=== PATIENT | female | born 1995 | race Caucasian/White ===

== ENCOUNTER 2018-11-10 23:17 | Emergency (ER) | payer OTHER ==
[~2018-11-10] VITALS: Ht 172.7 cm; Wt 63.5 kg
[2018-11-11 00:10] VITALS: BP 116/60
--- NOTE | 2018-11-11 00:17 | NUR ---
PT TRIAGED, SENT BACK TO LOBBY AWAITING BED
--- NOTE | 2018-11-11 01:02 | NUR ---
PT STATED THAT SHE WANTED TO GET RESULTS OF URINE SAMPLE. DISCUSSED THAT RESULTS MUST BE INTERPRETED AND EVALUATED BY ER MD. PT STATED TO SPEAK WITH ER MD, MADE PT AWARE THAT PT NEEDS TO WAIT UNTIL BED IS AVAILABLE. PT STATED SHE WILL JUST LEAVE. PT ELOPED AT THIS TIME.
== END 2018-11-11 01:02 | disposition left against medical advice (07) ==
LOC: MED 23:17
DX: R10.32 Left lower quadrant pain (principal); F31.9 Bipolar disorder, unspecified
CPT/HCPCS: 81002; 81025; 99281

== ENCOUNTER 2018-12-25 22:47 | Emergency (ER) | payer OTHER ==
[~2018-12-25] VITALS: Ht 172.7 cm; Wt 74.8 kg
[2018-12-25 23:10] VITALS: BP 103/63
--- NOTE | 2018-12-25 23:12 | NUR ---
TO LOBBY A/W BED, AMBULATORY
--- NOTE | 2018-12-25 23:49 | NUR ---
PT AMBULATED TO BED 3 WITH STEADY GAIT.
--- NOTE | 2018-12-26 | NUR ---
PT CAME TO ER C/O OF RIGHT SUPRAPUBIC PAIN AND VAGINAL BLEEDING. PT IS 9 WEEKS . PAIN AT RIGHT SUPRAPUBIC AREA RADIATING TO BACK. PAIN LEVEL 6/10. PT HAS LIGHT VAGINAL BLEEDING WITH SMALL CLOTS. PT ALSO STATES SHE HAS BURNING UPON URINATION. NO VAGINAL DISCHARGE. PT HAS HX OF ECTOPIC IN MAY. SAFETY MEASURES IN PLACE. WAITING FOR ERMD TO EVALUATE PT.
--- NOTE | 2018-12-26 00:30 | NUR ---
PT IN BED RESTING WITH EYES CLOSED, EASILY ARROUSABLE. VSS. WILL CONTINUE TO MONITOR.
[2018-12-26 00:49] LABS: BASOPHILS % (AUTO) 0.4 % (0.0-2.0); EOSINOPHILS # (AUTO) 0.2 K/uL (0-0.4); EOSINOPHILS % (AUTO) 1.8 % (0.0-4.0); HEMATOCRIT 37.1 % (36-48); HEMOGLOBIN 12.2 g/dL (12.0-16.0); LYMPHOCYTES # (AUTO) 2.6 K/uL (2.5-16.5); LYMPHOCYTES % (AUTO) 29.7 % (20.5-51.1); MEAN CORPUSCULAR HEMOGLOBIN 28 pg (27-31); MEAN CORPUSCULAR HGB CONC 33 g/dL (33-37); MEAN CORPUSCULAR VOLUME 84.2 fL (80-94); MONOCYTES # (AUTO) 0.6 K/uL (0.8-1.0); MONOCYTES % (AUTO) 7.1 % (1.7-9.3); NEUTROPHILS # (AUTO) 5.4 K/uL (1.8-7.7); PLATELET COUNT (AUTO) 272 K/uL (140-450); RED CELL DISTRIBUTION WIDTH 15.4 % (11.6-13.7); WHITE BLOOD COUNT (AUTO) 8.8 K/uL (4.8-10.8)
[2018-12-26 00:51] LABS: APPEARANCE,URINE HAZY (CLEAR); BILIRUBIN,URINE NEGATIVE (NEGATIVE); BLOOD, URINE TRACE-I (NEGATIVE); COLOR,URINE YELLOW (YELLOW); LEUKOCYTE ESTERASE ,URINE NEGATIVE (NEGATIVE); NITRITE, URINE NEGATIVE (NEGATIVE); UGLUCOSE NEGATIVE (NEGATIVE)
[2018-12-26 01:03] LABS: ANION GAP 10.2 (8-16); CARBON DIOXIDE 28.2 mmol/L (21-32); CREATININE 0.6 mg/dL (0.6-1.3); POTASSIUM 4.4 mmol/L (3.5-5.1)
--- NOTE | 2018-12-26 01:04 | NUR ---
US AT BEDSIDE
[2018-12-26 01:10] LABS: RBC,URINE 0-5 /HPF (0-5); WBC,URINE 0-5 /HPF (0-5)
[2018-12-26 01:29] LABS: ALBUMIN 3.6 g/dL (3.4-5.0); TOTAL BILIRUBIN 0.2 mg/dL (0.0-1.0)
--- NOTE | 2018-12-26 02:00 | NUR ---
PT RESTING IN BED WITH EYES CLOSED, EASILY ARROUSABLE. VSS. WILL CONTINUE TO MONITOR.
--- NOTE | 2018-12-26 02:50 | NUR ---
PT SITTING UP IN BED AWAKE, TALKING TO FAMILY. WILL CONTINUE TO MONITOR.
--- NOTE | 2018-12-26 03:50 | NUR ---
ERMD AT BEDSIDE
[2018-12-26 03:55] VITALS: BP 100/71
--- NOTE | 2018-12-26 03:59 | NUR ---
Patient discharged BY DR. CARTWRIGHT with v/s stable. Written and verbal after care instructions given and explained. Patient verbalized understanding. Ambulatory with steady gait. All questions addressed prior to discharge. Advised to follow up with PMD.
== END 2018-12-26 03:59 | disposition home or self-care (01) ==
LOC: MED 22:47
DX: O03.9 Complete or unspecified spontaneous abortion without complication (principal); Z98.890 Other specified postprocedural states; Z88.8 Allergy status to other drugs, medicaments and biological substances
CPT/HCPCS: 36415; 76801; 80053; 81001; 84702; 85025; 86900; 86901; 87086; 99284; Q0092

== ENCOUNTER 2019-01-02 19:12 | Observation (INO) | payer OTHER ==
[~2019-01-02] VITALS: Ht 172.7 cm; Wt 74.8 kg
--- NOTE | 2019-01-02 19:14 | NUR ---
PT GABRIELLE WRIGHT. TAKEN TO BED 11
[2019-01-02 19:17] VITALS: BP 120/73
--- NOTE | 2019-01-02 19:17 | NUR ---
PT BIBA FROM HOME C/O VAGINAL BLEEDING AND LEFT LOWER QUADRANT ABDOMINAL PAIN 01/02. PT IS 9WKS , SEEN IN ER AUG 2 FOR THE SAME SIGNS AND SYMPTOMS BUT WORSENING PAIN AND MORE BLEEDING, PT STATED USING 8 PADS SATURATED WITH BLOOD TODAY WITH CLOTS. PT AAOX4, GCS 15, RR EVEN UNLABORED, ED MD DR. WHALEY MADE AWARE, WILL CONTINUE TO MONITOR CLOSELY. BED IN LOWEST POSITION, SIDERAIL UP, SIGNIFICANT OTHER AT BEDSIDE.
[2019-01-02] MEDS ORDERED: MORPHINE SULFATE 4 MG/ML SYR IVP ONE (19:25)
[2019-01-02] MEDS ORDERED: NACL 0.9% 1,000 ML IV ONE (19:25)
[2019-01-02] MEDS ORDERED: ONDANSETRON 4 MG/2 ML VIAL IVP ONE (19:25)
[2019-01-02 19:51] LABS: BASOPHILS # (AUTO) 0.1 K/uL (0.00-0.22); BASOPHILS % (AUTO) 0.5 % (0.0-2.0); EOSINOPHILS # (AUTO) 0.1 K/uL (0-0.4); HEMATOCRIT 35.4 % (36-48); HEMOGLOBIN 11.9 g/dL (12.0-16.0); LYMPHOCYTES # (AUTO) 2.7 K/uL (2.5-16.5); LYMPHOCYTES % (AUTO) 26.8 % (20.5-51.1); MEAN CORPUSCULAR HEMOGLOBIN 28 pg (27-31); MEAN CORPUSCULAR HGB CONC 34 g/dL (33-37); MEAN CORPUSCULAR VOLUME 83.7 fL (80-94); MONOCYTES # (AUTO) 0.5 K/uL (0.8-1.0); MONOCYTES % (AUTO) 5.4 % (1.7-9.3); NEUTROPHILS # (AUTO) 6.6 K/uL (1.8-7.7); NEUTROPHILS % (AUTO) 66.3 % (42.2-75.2); PLATELET COUNT (AUTO) 270 K/uL (140-450); RED BLOOD CELL COUNT(AUTO) 4.23 MIL/uL (4.20-5.40); RED CELL DISTRIBUTION WIDTH 14.7 % (11.6-13.7); WHITE BLOOD COUNT (AUTO) 9.9 K/uL (4.8-10.8)
[2019-01-02 20:04] LABS: PROTHROMBIN TIME 10.3 secs (10.8-13.4)
[2019-01-02 20:05] LABS: CARBON DIOXIDE 22.6 mmol/L (21-32); CREATININE 0.7 mg/dL (0.6-1.3); POTASSIUM 3.6 mmol/L (3.5-5.1)
[2019-01-02 20:11] LABS: ALBUMIN 3.6 g/dL (3.4-5.0); TOTAL BILIRUBIN 0.3 mg/dL (0.0-1.0)
--- NOTE | 2019-01-02 20:53 | NUR ---
Dr. Varner examining patient.
[2019-01-02] MEDS ORDERED: KETOROLAC 30 MG/ML VIAL IVP ONE (21:00)
--- NOTE | 2019-01-02 21:08 | NUR ---
PT STILL C/O ABDOMINAL PAIN 12/02, ADMINISTERED TORADOL ORDERED, VSS AT THIS TIME, WILL CONTINUE TO MONITOR CLOSELY.
--- NOTE | 2019-01-02 21:09 | NUR ---
Ultrasound at bedside.
--- NOTE | 2019-01-02 23:05 | NUR ---
DR. WHALEY AT PT BEDSIDE
--- NOTE | 2019-01-02 23:29 | NUR ---
Dr. Barrett examining patient.
--- NOTE | 2019-01-03 | NUR ---
PT IN BED RESTING VVS AT THIS TIME.
[2019-01-03] MEDS ORDERED: diphenhydrAMINE 50 MG/ML VIAL IVP ONE (00:25)
[2019-01-03 00:33] LABS: BASOPHILS % (AUTO) 0.3 % (0.0-2.0); EOSINOPHILS # (AUTO) 0.1 K/uL (0-0.4); EOSINOPHILS % (AUTO) 1.1 % (0.0-4.0); HEMATOCRIT 34.2 % (36-48); HEMOGLOBIN 11.4 g/dL (12.0-16.0); LYMPHOCYTES # (AUTO) 2.4 K/uL (2.5-16.5); LYMPHOCYTES % (AUTO) 23.6 % (20.5-51.1); MEAN CORPUSCULAR HEMOGLOBIN 28 pg (27-31); MEAN CORPUSCULAR HGB CONC 33 g/dL (33-37); MEAN CORPUSCULAR VOLUME 84.6 fL (80-94); MONOCYTES # (AUTO) 0.4 K/uL (0.8-1.0); MONOCYTES % (AUTO) 4.3 % (1.7-9.3); NEUTROPHILS # (AUTO) 7.3 K/uL (1.8-7.7); NEUTROPHILS % (AUTO) 70.7 % (42.2-75.2); PLATELET COUNT (AUTO) 249 K/uL (140-450); RED BLOOD CELL COUNT(AUTO) 4.04 MIL/uL (4.20-5.40); RED CELL DISTRIBUTION WIDTH 14.6 % (11.6-13.7); WHITE BLOOD COUNT (AUTO) 10.3 K/uL (4.8-10.8)
[2019-01-03 01:13] VITALS: BP 93/50
--- NOTE | 2019-01-03 01:13 | NUR ---
ADMITTED A 23 YEAR OLD FEMALE FROM ER WITH A DX OF ABDOMINAL PAIN AND VAGINAL BLEEDING, AWAKE ALERT AND ORIENTEDX4, SMALL AMOUNT OF VAGINAL BLEEDING NOTED ORIENTED RTO SURROUNDINGS. CALL LIGHT WITHIN REACH
--- NOTE | 2019-01-03 01:20 | NUR ---
Patient will be admitted to care of DR. Chetna KEVIN. Admited to MEDICAL SURGICAL UNIT. Will go to room 105B. Belongings list completed. BEDSIDE Report to ANN VALLECILLO.
[2019-01-03] MEDS ORDERED: MORPHINE SULFATE 2 MG/ML SYR IVP PRN (02:35)
[2019-01-03] MEDS ORDERED: LACTATED RINGERS 1,000 ML IV SCH ×3 (02:40→09:57)
[2019-01-03 04:00] VITALS: BP 95/50
--- NOTE | 2019-01-03 04:00 | NUR ---
RESTING QUIETLY, NO COMPLAINTS.
--- NOTE | 2019-01-03 06:23 | NUR ---
RESTING COMFORTABLY,REINFORCED NPO STATUS.
--- NOTE | 2019-01-03 06:57 | NUR ---
PATIENT HAS BEEN SCREENED AND CATEGORIZED LOW NUTRITION RISK. PATIENT WILL BE SEEN WITHIN 7 DAYS OF ADMISSION. 01/07/19 MICHAELLE FRENCH MS, RDN
--- NOTE | 2019-01-03 08:00 | NUR ---
RECEIVED PATIENT ALERT AWAKE ORIENTED X4, NOT IN ANY PAIN NOTED. IVF ON GOING AND INFUSING WELL. NPO OBSERVED.SURGICAL CHECKLIST DONE BY RUTH ANN JUAREZ. WILL CONTINUE TO MONITOR.
--- NOTE | 2019-01-03 09:20 | NUR ---
PATIENT OFF FLOOR WENT TO SURGERY FOR D&C. VITALS STABLE.
[2019-01-03 09:26] VITALS: BP 99/57
[2019-01-03] MEDS ORDERED: PROPOFOL 200 MG/20 ML VIAL IV ONE (09:45)
[2019-01-03] MEDS ORDERED: SEVOFLURANE 250 ML BTL INH ONE (09:45)
[2019-01-03] MEDS ORDERED: fentaNYL 0.05 MG/ML VIAL ONE (09:54)
[2019-01-03] MEDS ORDERED: MIDAZOLAM 2 MG/2 ML VIAL ONE (09:54)
[2019-01-03] MEDS ORDERED: MEPERIDINE 25 MG/ML SYR ONE (09:54)
[2019-01-03] MEDS ORDERED: diphenhydrAMINE 50 MG/ML VIAL IVP PRN (10:00)
[2019-01-03] MEDS ORDERED: ONDANSETRON 4 MG/2 ML VIAL IVP PRN (10:00)
[2019-01-03] MEDS ORDERED: MEPERIDINE 25 MG/ML SYR IVP PRN (10:00)
[2019-01-03] MEDS ORDERED: HYDROmorphone 1 MG/ML AMP IVP PRN (10:00)
--- NOTE | 2019-01-03 11:15 | NUR ---
PATIENT BACK FROM SURGERY, VITALS STABLE, DENIES PAIN. WILL CONTINUE TO MONITOR.
--- NOTE | 2019-01-03 13:41 | NUR ---
DISCHARGE PAPERS SIGNED, DC INSTRUCTION GIVEN AND VERBALIZED UNDERSTANDING. IN STABLE CONDITION.
== END 2019-01-03 14:00 | disposition home or self-care (01) ==
LOC: MED 19:12 → MTU 01-03 00:12
PROVIDERS: ADMIT Obstetrics & Gynecology; ATTEND Obstetrics & Gynecology
DX: O02.1 Missed abortion (principal); N93.9 Abnormal uterine and vaginal bleeding, unspecified; D64.9 Anemia, unspecified; F32.9 Major depressive disorder, single episode, unspecified; Z3A.08 8 weeks gestation of pregnancy
CPT/HCPCS: 36415; 59820; 76817; 80053; 84702; 85025; 85610; 85730; 86886; 86900; 86901; 87081; 96374; 96375; 99285; G0378; J1200; J1885; J2175; J2250; J2270; J2405; J2704; J3010; J7030; J7120; Q0092; 96361

== ENCOUNTER 2020-07-07 13:58 | Inpatient (IN) | payer OTHER, SELFPAY ==
[~2020-07-07] VITALS: Ht 172.7 cm; Wt 90.7 kg
[2020-07-07 14:44] VITALS: BP 108/70
[2020-07-07 14:48] LABS: BASOPHILS % (AUTO) 0.2 % (0.0-2.0); EOSINOPHILS # (AUTO) 0.1 K/uL (0-0.4); EOSINOPHILS % (AUTO) 0.7 % (0.0-4.0); HEMATOCRIT 29.2 % (36-48); HEMOGLOBIN 9.6 g/dL (12.0-16.0); LYMPHOCYTES # (AUTO) 1.5 K/uL (2.5-16.5); MEAN CORPUSCULAR HEMOGLOBIN 27 pg (27-31); MEAN CORPUSCULAR HGB CONC 33 g/dL (33-37); MEAN CORPUSCULAR VOLUME 80.6 fL (80-94); MONOCYTES # (AUTO) 0.5 K/uL (0.8-1.0); MONOCYTES % (AUTO) 5.1 % (1.7-9.3); NEUTROPHILS # (AUTO) 8.1 K/uL (1.8-7.7); PLATELET COUNT (AUTO) 247 K/uL (140-450); RED BLOOD CELL COUNT(AUTO) 3.63 MIL/uL (4.20-5.40); RED CELL DISTRIBUTION WIDTH 14.9 % (11.6-13.7); WHITE BLOOD COUNT (AUTO) 10.3 K/uL (4.8-10.8)
[2020-07-07 14:49] LABS: APPEARANCE,URINE SL CLOUDY (CLEAR); BILIRUBIN,URINE NEGATIVE (NEGATIVE); BLOOD, URINE NEGATIVE (NEGATIVE); COLOR,URINE YELLOW (YELLOW); LEUKOCYTE ESTERASE ,URINE NEGATIVE (NEGATIVE); NITRITE, URINE NEGATIVE (NEGATIVE); UGLUCOSE NEGATIVE (NEGATIVE)
[2020-07-07] MEDS ORDERED: MORPHINE SULFATE 4 MG/ML SYR IVP PRN (16:40)
[2020-07-07] MEDS: LACTATED RINGERS 1,000 ML IV SCH (17:20)
[2020-07-07] MEDS: ONDANSETRON 4 MG/2 ML VIAL IVP PRN ×2 (17:38→21:05)
[2020-07-07] MEDS ORDERED: BETAMETH ACET/BETAMETH NA PH 30 MG/5 ML VIAL IM SCH (18:10)
[2020-07-07] MEDS ORDERED: MORPHINE SULFATE 10 MG/ML VIAL ONE (20:50)
[2020-07-08] MEDS ORDERED: MORPHINE SULFATE 10 MG/ML VIAL ONE (02:12)
[2020-07-08] MEDS: ONDANSETRON 4 MG/2 ML VIAL IVP PRN (02:25)
[2020-07-08 02:26] VITALS: BP 98/52
[2020-07-08 07:40] LABS: BASOPHILS % (AUTO) 0.2 % (0.0-2.0); HEMATOCRIT 27.5 % (36-48); HEMOGLOBIN 8.9 g/dL (12.0-16.0); LYMPHOCYTES # (AUTO) 1.2 K/uL (2.5-16.5); LYMPHOCYTES % (AUTO) 10.7 % (20.5-51.1); MEAN CORPUSCULAR HEMOGLOBIN 27 pg (27-31); MEAN CORPUSCULAR HGB CONC 32 g/dL (33-37); MEAN CORPUSCULAR VOLUME 82.1 fL (80-94); MONOCYTES # (AUTO) 0.3 K/uL (0.8-1.0); MONOCYTES % (AUTO) 2.6 % (1.7-9.3); NEUTROPHILS # (AUTO) 9.6 K/uL (1.8-7.7); NEUTROPHILS % (AUTO) 86.5 % (42.2-75.2); PLATELET COUNT (AUTO) 220 K/uL (140-450); RED BLOOD CELL COUNT(AUTO) 3.35 MIL/uL (4.20-5.40); RED CELL DISTRIBUTION WIDTH 14.9 % (11.6-13.7); WHITE BLOOD COUNT (AUTO) 11.1 K/uL (4.8-10.8)
[2020-07-08] MEDS: MORPHINE SULFATE 4 MG/ML SYR IVP PRN ×2 (07:47→11:47)
--- NOTE | 2020-07-08 07:57 | NUR ---
PATIENT HAS BEEN SCREENED AND CATEGORIZED LOW NUTRITION RISK. PATIENT WILL BE SEEN WITHIN 7 DAYS OF ADMISSION. 07/13/[address]
[2020-07-08] MEDS: LACTATED RINGERS 1,000 ML IV SCH (11:09)
[2020-07-08] MEDS ORDERED: BETAMETH ACET/BETAMETH NA PH 30 MG/5 ML VIAL IM ONE (18:00)
[2020-07-08] MEDS ORDERED: BETAMETH ACET/BETAMETH NA PH 30 MG/5 ML VIAL IM SCH (18:05)
== END 2020-07-08 19:23 | disposition home or self-care (01) | DRG 566 ==
LOC: MLD 13:58 → OBSVTOIN 17:04
PROVIDERS: ADMIT Obstetrics & Gynecology; ATTEND Obstetrics & Gynecology
DX: O41.8X30 Other specified disorders of amniotic fluid and membranes, third trimester, not applicable or unspecified (principal); Z20.822 Contact with and (suspected) exposure to COVID-19; O34.219 Maternal care for unspecified type scar from previous cesarean delivery; Z88.8 Allergy status to other drugs, medicaments and biological substances; Z3A.35 35 weeks gestation of pregnancy
CPT/HCPCS: 36415; 76805; 76815; 76819; 81003; 85025; 85384; 86886; 86900; 86901; G0378; J0702; J2270; J2405; J7120

== ENCOUNTER 2023-04-03 08:17 | Emergency (ER) | payer OTHER ==
[~2023-04-03] VITALS: Ht 172.7 cm; Wt 72.6 kg
[2023-04-03 08:23] VITALS: BP 125/81; PULSE 115; RESP 18; TEMP 97.1; O2SAT 97
[2023-04-03] MEDS ORDERED: NACL 0.9% 1,000 ML IV ONE (08:35)
[2023-04-03] MEDS ORDERED: ONDANSETRON 4 MG/2 ML VIAL IVP ONE (08:35)
[2023-04-03 08:46] LABS: BASOPHILS % (AUTO) 0.2 % (0.0-2.0); HEMATOCRIT 38.8 % (36-48); HEMOGLOBIN 13.4 g/dL (12.0-16.0); LYMPHOCYTES # (AUTO) 0.7 K/uL (2.5-16.5); LYMPHOCYTES % (AUTO) 7.8 % (20.5-51.1); MEAN CORPUSCULAR HEMOGLOBIN 30 pg (27-31); MEAN CORPUSCULAR HGB CONC 35 g/dL (33-37); MEAN CORPUSCULAR VOLUME 87.9 fL (80-94); MONOCYTES # (AUTO) 0.3 K/uL (0.8-1.0); MONOCYTES % (AUTO) 2.8 % (1.7-9.3); NEUTROPHILS # (AUTO) 8.4 K/uL (1.8-7.7); NEUTROPHILS % (AUTO) 89.2 % (42.2-75.2); PLATELET COUNT (AUTO) 208 K/uL (140-450); RED BLOOD CELL COUNT(AUTO) 4.41 MIL/uL (4.20-5.40); RED CELL DISTRIBUTION WIDTH 13.3 % (11.6-13.7); WHITE BLOOD COUNT (AUTO) 9.5 K/uL (4.8-10.8)
[2023-04-03 08:53] LABS: ANION GAP 13.4 (8-16); CALCIUM 7.6 mg/dL (8.5-10.1); CARBON DIOXIDE 20.8 mmol/L (21-32); CREATININE 0.4 mg/dL (0.6-1.3); POTASSIUM 3.2 mmol/L (3.5-5.1)
[2023-04-03] MEDS ORDERED: POTASSIUM CHLORIDE 10 MEQ TABER PO ONE (09:30)
[2023-04-03 10:31] LABS: APPEARANCE,URINE CLEAR (CLEAR); BILIRUBIN,URINE NEGATIVE (NEGATIVE); BLOOD, URINE NEGATIVE (NEGATIVE); COLOR,URINE YELLOW (YELLOW); LEUKOCYTE ESTERASE ,URINE 2+ (NEGATIVE); NITRITE, URINE NEGATIVE (NEGATIVE); PROTEIN,URINE NEGATIVE (NEGATIVE); UGLUCOSE NEGATIVE (NEGATIVE)
[2023-04-03 10:44] LABS: BACTERIA,URINE 10-30 (MOD) /HPF (None Seen); RBC,URINE 0-5 /HPF (0-5); SQUAMOUS EPITHELIAL CELL,UR 4-10 (MOD) /LPF (0-3 (FEW))
[2023-04-03] MEDS ORDERED: NITR100C7 PO (10:52)
[2023-04-03] MEDS ORDERED: ONDA8TAB87 PO (10:52)
[2023-04-03 11:00] VITALS: BP 125/81; PULSE 115; RESP 18; TEMP 97.1; O2SAT 97
== END 2023-04-03 11:07 | disposition home or self-care (01) ==
LOC: MED 08:17
DX: O21.8 Other vomiting complicating pregnancy (principal); O26.812 Pregnancy related exhaustion and fatigue, second trimester; R42 Dizziness and giddiness; R55 Syncope and collapse; O23.42 Unspecified infection of urinary tract in pregnancy, second trimester; Z3A.17 17 weeks gestation of pregnancy; Z86.69 Personal history of other diseases of the nervous system and sense organs; Z98.890 Other specified postprocedural states; Z88.8 Allergy status to other drugs, medicaments and biological substances
CPT/HCPCS: 36415; 80048; 81001; 85025; 87086; 93005; 96361; 96374; 99284; J2405

== ENCOUNTER 2023-08-31 08:38 | Inpatient (IN) | payer OTHER ==
[~2023-08-31] VITALS: Ht 172.7 cm; Wt 97.1 kg
[~2023-08-31 08:38] MED LIST: NITR100C7 PO; ONDA8TAB87 PO
[2023-08-31] MEDS ORDERED: CYCL-711 PO (09:38)
[2023-08-31] MEDS ORDERED: ceFAZolin Sod. 2,000 MG in DEXTROSE 5% 100 ML IV ONE (10:15)
[2023-08-31 10:33] LABS: BASOPHILS % (AUTO) 0.4 % (0.0-2.0); EOSINOPHILS % (AUTO) 0.5 % (0.0-4.0); HEMATOCRIT 29.1 % (36-48); HEMOGLOBIN 9.6 g/dL (12.0-16.0); LYMPHOCYTES # (AUTO) 1.6 K/uL (2.5-16.5); LYMPHOCYTES % (AUTO) 16.6 % (20.5-51.1); MEAN CORPUSCULAR HEMOGLOBIN 25 pg (27-31); MEAN CORPUSCULAR HGB CONC 33 g/dL (33-37); MEAN CORPUSCULAR VOLUME 77.1 fL (80-94); MONOCYTES # (AUTO) 0.6 K/uL (0.8-1.0); MONOCYTES % (AUTO) 5.9 % (1.7-9.3); NEUTROPHILS # (AUTO) 7.2 K/uL (1.8-7.7); NEUTROPHILS % (AUTO) 76.6 % (42.2-75.2); PLATELET COUNT (AUTO) 224 K/uL (140-450); RED BLOOD CELL COUNT(AUTO) 3.77 MIL/uL (4.20-5.40); RED CELL DISTRIBUTION WIDTH 16.2 % (11.6-13.7); WHITE BLOOD COUNT (AUTO) 9.4 K/uL (4.8-10.8)
[2023-08-31 10:36] LABS: APPEARANCE,URINE CLEAR (CLEAR); BILIRUBIN,URINE NEGATIVE (NEGATIVE); BLOOD, URINE NEGATIVE (NEGATIVE); COLOR,URINE YELLOW (YELLOW); LEUKOCYTE ESTERASE ,URINE NEGATIVE (NEGATIVE); NITRITE, URINE NEGATIVE (NEGATIVE); PH,URINE 6.5 (5.0-9.0); PROTEIN,URINE NEGATIVE (NEGATIVE); UGLUCOSE NEGATIVE (NEGATIVE)
[2023-08-31 10:55] LABS: INR 0.88 (0.8-1.2); PARTIAL THROMBOPLASTIN TIME 25.2 secs (22-35.6); PROTHROMBIN TIME 9.3 secs (10.8-13.4)
[2023-08-31 10:58] LABS: CALCIUM 8.7 mg/dL (8.5-10.1); CARBON DIOXIDE 22.9 mmol/L (21-32); CREATININE 0.5 mg/dL (0.6-1.3); POTASSIUM 3.9 mmol/L (3.5-5.1)
[2023-08-31 11:02] LABS: ALBUMIN 2.4 g/dL (3.4-5.0); TOTAL BILIRUBIN 0.4 mg/dL (0.0-1.0); TOTAL PROTEIN, SERUM 6.8 g/dL (6.4-8.2)
[2023-08-31] MEDS ORDERED: ceFAZolin 2,000 MG VIAL ONE (11:07)
[2023-08-31] MEDS: CITRIC ACID/SODIUM CITRATE 30 ML UDC PO SCH (11:14)
[2023-08-31] MEDS: LACTATED RINGERS 1,000 ML IV SCH (11:15)
[2023-08-31] MEDS ORDERED: ePHEDrine 50 MG/ML VIAL ONE (11:30)
[2023-08-31] MEDS ORDERED: DEXAMETHASONE 4 MG/ML VIAL ONE (11:30)
[2023-08-31] MEDS ORDERED: ONDANSETRON 4 MG/2 ML VIAL ONE (11:30)
[2023-08-31] MEDS ORDERED: METOCLOPRAMIDE 10 MG/2 ML INJ VIAL ONE (11:30)
[2023-08-31] MEDS ORDERED: fentaNYL citrate 0.05 MG/ML VIAL ONE (11:33)
[2023-08-31] MEDS ORDERED: MORPHINE PRES FREE 5 MG/10 ML AMP IV ONE (11:33)
[2023-08-31] MEDS ORDERED: METHYLERGONOVINE 0.2 MG/ML AMP ONE (11:34)
[2023-08-31] MEDS ORDERED: ONDANSETRON 4 MG/2 ML VIAL IVP PRN (12:10)
[2023-08-31] MEDS ORDERED: NALOXONE 0.4 MG/ML VIAL IVP PRN ×3 (12:10)
[2023-08-31] MEDS: OXYTOCIN/0.9 % SODIUM CHLORIDE 500 ML IV ONE (13:43)
[2023-08-31] MEDS ORDERED: MEASLES, MUMPS, AND RUBELLA 1 VIAL SQVAC ONE (13:45)
[2023-08-31] MEDS ORDERED: METHYLERGONOVINE 0.2 MG/ML AMP IM PRN (13:45)
[2023-08-31] MEDS: KETOROLAC 30 MG/ML VIAL IM/IVP SCH (18:10)
[2023-08-31] MEDS: OXYTOCIN/0.9 % SODIUM CHLORIDE 500 ML IV SCH (19:26)
[2023-08-31] MEDS: diphenhydrAMINE 50 MG/ML VIAL IVP PRN (21:43)
[2023-09-01 05:34] LABS: BASOPHILS % (AUTO) 0.2 % (0.0-2.0); EOSINOPHILS % (AUTO) 0.3 % (0.0-4.0); HEMATOCRIT 25.6 % (36-48); HEMOGLOBIN 8.4 g/dL (12.0-16.0); LYMPHOCYTES % (AUTO) 15.6 % (20.5-51.1); MEAN CORPUSCULAR HEMOGLOBIN 26 pg (27-31); MEAN CORPUSCULAR HGB CONC 33 g/dL (33-37); MEAN CORPUSCULAR VOLUME 77.9 fL (80-94); MONOCYTES # (AUTO) 0.8 K/uL (0.8-1.0); MONOCYTES % (AUTO) 6.1 % (1.7-9.3); NEUTROPHILS % (AUTO) 77.8 % (42.2-75.2); PLATELET COUNT (AUTO) 203 K/uL (140-450); RED BLOOD CELL COUNT(AUTO) 3.29 MIL/uL (4.20-5.40); RED CELL DISTRIBUTION WIDTH 16.4 % (11.6-13.7); WHITE BLOOD COUNT (AUTO) 12.9 K/uL (4.8-10.8)
[2023-09-01] MEDS ORDERED: oxyCODONE/APAP 5/325 MG 1 TAB TAB PO PRN (06:25)
[2023-09-01] MEDS: bisacodyL 10 MG SUPP RC SCH (09:00)
[2023-09-01] MEDS: SIMETHICONE 80 MG TAB.CHEW PO PRN (10:01)
[2023-09-01] MEDS: oxyCODONE/APAP 5/325 MG 1 TAB TAB PO PRN (10:02)
[2023-09-02] MEDS ORDERED: CAMERA MC ONE (03:44)
[2023-09-02] MEDS: IBUPROFEN 800 MG TAB PO PRN (08:12)
== END 2023-09-02 14:40 | disposition home or self-care (01) | DRG 539 ==
LOC: MLD 08:38 → OBSVTOIN 10:10 → MFCC 14:30
PROVIDERS: ADMIT Obstetrics & Gynecology; ATTEND Obstetrics & Gynecology
PROC: 0UB70ZZ Excision of Bilateral Fallopian Tubes, Open Approach (ICD-10-PCS; 2023-08-31)
PROC: 0DNW0ZZ Release Peritoneum, Open Approach (ICD-10-PCS; 2023-08-31)
PROC: 10D00Z1 Extraction of Products of Conception, Low, Open Approach (ICD-10-PCS; principal; 2023-08-31 11:15)
DX: O99.013 Anemia complicating pregnancy, third trimester (principal); D62 Acute posthemorrhagic anemia; O34.211 Maternal care for low transverse scar from previous cesarean delivery; Z37.0 Single live birth; Z3A.38 38 weeks gestation of pregnancy; K66.0 Peritoneal adhesions (postprocedural) (postinfection); Z30.2 Encounter for sterilization
CPT/HCPCS: 36415; 80053; 81003; 85025; 85610; 85730; 86592; 86886; 86900; 86901; 88302; 90715; J1100; J1200; J1885; J2210; J2405; J2590; J2765; J3010; J7120

== ENCOUNTER 2023-10-15 21:06 | Emergency (ER) | payer MEDICAID, OTHER ==
[~2023-10-15] VITALS: Ht 172.7 cm; Wt 62.6 kg
[~2023-10-15 21:06] MED LIST changes: +CYCL-711 PO; -NITR100C7 PO
[2023-10-15 21:18] VITALS: BP 122/64; PULSE 70; RESP 16; TEMP 98.7; O2SAT 99
[2023-10-15 21:55] VITALS: BP 117/78; PULSE 56; RESP 14
[2023-10-15 22:01] VITALS: O2SAT 98
[2023-10-15 22:12] LABS: BASOPHILS # (AUTO) 0.1 K/uL (0.00-0.22); BASOPHILS % (AUTO) 0.5 % (0.0-2.0); EOSINOPHILS # (AUTO) 0.1 K/uL (0-0.4); EOSINOPHILS % (AUTO) 1.2 % (0.0-4.0); HEMATOCRIT 35.9 % (36-48); HEMOGLOBIN 11.5 g/dL (12.0-16.0); LYMPHOCYTES # (AUTO) 2.3 K/uL (2.5-16.5); MEAN CORPUSCULAR HEMOGLOBIN 25 pg (27-31); MEAN CORPUSCULAR HGB CONC 32 g/dL (33-37); MEAN CORPUSCULAR VOLUME 76.6 fL (80-94); MONOCYTES # (AUTO) 0.5 K/uL (0.8-1.0); NEUTROPHILS % (AUTO) 72.3 % (42.2-75.2); PLATELET COUNT (AUTO) 295 K/uL (140-450); RED BLOOD CELL COUNT(AUTO) 4.68 MIL/uL (4.20-5.40); RED CELL DISTRIBUTION WIDTH 18.3 % (11.6-13.7); WHITE BLOOD COUNT (AUTO) 11.1 K/uL (4.8-10.8)
[2023-10-15 22:21] LABS: ANION GAP 10.9 (8-16); CALCIUM 9.2 mg/dL (8.5-10.1); CARBON DIOXIDE 29.5 mmol/L (21-32); CREATININE 0.8 mg/dL (0.6-1.3); POTASSIUM 3.4 mmol/L (3.5-5.1)
[2023-10-15] MEDS: CYCLOBENZAPRINE 10 MG TAB PO ONE (23:15)
[2023-10-15] MEDS: KETOROLAC 30 MG/ML VIAL IM ONE (23:15)
[2023-10-15] MEDS: LIDOCAINE 5% 1 EA PATCH TP ONE (23:16)
[2023-10-15 23:32] LABS: APPEARANCE,URINE CLEAR (CLEAR); BILIRUBIN,URINE NEGATIVE (NEGATIVE); BLOOD, URINE NEGATIVE (NEGATIVE); COLOR,URINE YELLOW (YELLOW); LEUKOCYTE ESTERASE ,URINE NEGATIVE (NEGATIVE); NITRITE, URINE NEGATIVE (NEGATIVE); PROTEIN,URINE NEGATIVE (NEGATIVE); UGLUCOSE NEGATIVE (NEGATIVE); UROBILINOGEN,URINE 0.2 EU/dL (0.2 - 1)
[2023-10-16] MEDS ORDERED: CYCL-711 PO (01:07)
[2023-10-16] MEDS ORDERED: NAPR-337 PO (01:07)
[2023-10-16] MEDS ORDERED: LID5T TP (01:07)
== END 2023-10-16 01:22 | disposition home or self-care (01) ==
LOC: MED 21:06
DX: M54.50 Low back pain, unspecified (principal); F41.9 Anxiety disorder, unspecified; R07.81 Pleurodynia; Z88.8 Allergy status to other drugs, medicaments and biological substances; Z79.899 Other long term (current) drug therapy; Z98.890 Other specified postprocedural states
CPT/HCPCS: 36415; 71045; 80048; 81003; 81025; 84484; 85025; 93005; 96372; 99285; Q0092

== ENCOUNTER 2024-01-26 22:49 | Emergency (ER) | payer SELFPAY ==
[~2024-01-26] VITALS: Ht 172.7 cm; Wt 70.3 kg
[~2024-01-26 22:49] MED LIST changes: +LID5T TP; +NAPR-337 PO
[2024-01-26 22:53] VITALS: BP 123/87; PULSE 89; RESP 25; O2SAT 98
[2024-01-26 23:20] VITALS: BP 113/69; PULSE 82; RESP 13; O2SAT 100
[2024-01-27] MEDS ORDERED: IBUP-2213 PO (00:04)
[2024-01-27] MEDS ORDERED: ACET500T99 PO (00:04)
[2024-01-27] MEDS ORDERED: DICL20GE TP (00:04)
[2024-01-27] MEDS ORDERED: PRED20TA5 PO (00:04)
[2024-01-27] MEDS ORDERED: CYCL-711 PO (00:04)
[2024-01-27] MEDS: KETOROLAC 30 MG/ML VIAL IM ONE (00:16)
[2024-01-27] MEDS: CYCLOBENZAPRINE 10 MG TAB PO ONE (00:19)
[2024-01-27] MEDS: predniSONE 20 MG TAB PO ONE (00:21)
== END 2024-01-27 00:40 | disposition home or self-care (01) ==
LOC: MED 22:49
DX: G89.29 Other chronic pain (principal); M54.50 Low back pain, unspecified; R06.02 Shortness of breath; R11.0 Nausea; F41.9 Anxiety disorder, unspecified; Z86.69 Personal history of other diseases of the nervous system and sense organs; Z79.899 Other long term (current) drug therapy; Z88.8 Allergy status to other drugs, medicaments and biological substances
CPT/HCPCS: 81025; 96372; 99283; J1885; J7512

== ENCOUNTER 2024-02-18 20:52 | Emergency (ER) | payer SELFPAY ==
[~2024-02-18] VITALS: Ht 172.7 cm; Wt 81.6 kg
[~2024-02-18 20:52] MED LIST changes: +ACET500T99 PO; +DICL20GE TP; +IBUP-2213 PO; +PRED20TA5 PO
[2024-02-18 20:57] VITALS: BP 141/101; PULSE 80; RESP 20; TEMP 97; O2SAT 99
[2024-02-18 21:41] VITALS: O2SAT 96
[2024-02-18 22:01] VITALS: BP 116/81; PULSE 53; RESP 18; TEMP 97.3; O2SAT 97
[2024-02-18] MEDS: KETOROLAC 30 MG/ML VIAL IM ONE (22:40)
[2024-02-18] MEDS: HYDROcodone/APAP 5/325 MG 1 TAB TAB PO ONE (22:43)
[2024-02-18] MEDS: diazePAM 5 MG TAB PO ONE (22:44)
[2024-02-18 23:17] LABS: APPEARANCE,URINE CLEAR (CLEAR); BILIRUBIN,URINE NEGATIVE (NEGATIVE); BLOOD, URINE NEGATIVE (NEGATIVE); COLOR,URINE YELLOW (YELLOW); LEUKOCYTE ESTERASE ,URINE NEGATIVE (NEGATIVE); NITRITE, URINE NEGATIVE (NEGATIVE); PROTEIN,URINE NEGATIVE (NEGATIVE); UGLUCOSE NEGATIVE (NEGATIVE); UROBILINOGEN,URINE 0.2 EU/dL (0.2 - 1)
[2024-02-18 23:28] LABS: AMPHETAMINE, URINE NEGATIVE ng/ml (NEG <=1000); BARBITURATE, URINE NEGATIVE ng/ml (NEG <=200); BENZODIAZEPINE, URINE NEGATIVE ng/mL (NEG <=200); CANNABINOID, URINE NEGATIVE ng/mL (NEG <=50); COCAINE, URINE NEGATIVE ng/mL (NEG <=300); OPIATE, URINE NEGATIVE ng/mL (NEG <=2000); PHENCYCLIDINE SCREEN,URINE NEGATIVE ng/mL (NEG <=25)
[2024-02-19] MEDS ORDERED: DIAZ5TAB6 PO (00:12)
[2024-02-19] MEDS ORDERED: NAPR-337 PO (00:12)
[2024-02-19] MEDS ORDERED: LID5T TP (00:12)
== END 2024-02-19 00:41 | disposition home or self-care (01) ==
LOC: MED 20:52
DX: M54.50 Low back pain, unspecified (principal); Z86.69 Personal history of other diseases of the nervous system and sense organs; Z98.890 Other specified postprocedural states; Z79.899 Other long term (current) drug therapy
CPT/HCPCS: 72128; 72131; 80305; 81003; 81025; 96372; 99285; J1885